=== PATIENT | female | born 1965 | race Caucasian/White ===

== ENCOUNTER 2020-08-08 07:56 | Outpatient (CLI) | payer OTHER ==
[2020-08-09 12:45] LABS: SARS-CoV-2 MS2 Positive; SARS-CoV-2 N Gene Negative; SARS-CoV-2 S Gene Negative; SARS-CoV-2 by NAA Not Detected (NotDetected); SARS-CoV-2 orf1ab Negative
== END 2020-08-08 07:57 | disposition home or self-care (01) ==
LOC: LABBT 07:56
PROVIDERS: ATTEND Plastic Surgery
DX: N62 Hypertrophy of breast (principal); Z20.828 Contact with and (suspected) exposure to other viral communicable diseases
CPT/HCPCS: 87635; U0003

== ENCOUNTER 2020-08-12 07:02 | Day surgery (SDC) | payer OTHER ==
[2020-08-08 12:32] VITALS: BMI 29.4
[2020-08-12] MEDS ORDERED: Heparin 5,000 UNITS/ML VIAL ONE (07:26)
[2020-08-12] MEDS ORDERED: Sodium Chloride 0.9% 10 ML ONE ×2 (08:18→11:00)
[2020-08-12] MEDS ORDERED: EPINEPHrine 1 MG/ML AMP ONE (08:18)
[2020-08-12] MEDS ORDERED: Bupivacaine 0.25% HCL 30 ML VIAL ONE (08:18)
[2020-08-12] MEDS ORDERED: Gentamicin 80 MG/2 ML VIAL ONE ×2 (08:18→11:00)
[2020-08-12] MEDS ORDERED: HYDROmorphone 2 MG/ML VIAL ONE (08:43)
[2020-08-12] MEDS ORDERED: Midazolam HCl 2 mg/2 ml Vial ONE (08:43)
[2020-08-12] MEDS ORDERED: Fentanyl 250 MCG/5 ML VIAL ONE (08:43)
[2020-08-12] MEDS ORDERED: PHENYLEPHRINE-NS 100 MCG/ML 10 ML SYRINGE ONE (12:09)
[2020-08-12] MEDS ORDERED: Dexamethasone 20 MG/5 ML VIAL ONE (12:09)
[2020-08-12] MEDS ORDERED: Ondansetron PF 4 MG/2 ML Vial ONE ×2 (12:09→16:16)
[2020-08-12] MEDS ORDERED: Lidocaine 1% PF 5 ML VIAL ONE (12:09)
[2020-08-12] MEDS ORDERED: Rocuronium Bromide 10 MG/ML (10ML VIAL) ONE (12:09)
[2020-08-12] MEDS ORDERED: PROPOFOL 200 MG/20 ML VIAL ONE (12:09)
[2020-08-12] MEDS ORDERED: EPHEDRINE 25 MG/5 ML SYRINGE ONE (12:09)
[2020-08-12] MEDS ORDERED: Glycopyrrolate 0.2 MG/ML 5 ML SYRINGE ONE (12:09)
[2020-08-12] MEDS ORDERED: Fentanyl 100 MCG/2 ML VIAL ONE (15:19)
[2020-08-12] MEDS ORDERED: HYDROcodone/Acetaminophen 5/325 mg Tablet ONE (17:23)
--- NOTE | 2020-08-18 10:41 | EKG ---
Test Reason : PREOP Blood Pressure : / mmHG Vent. Rate : 046 BPM Atrial Rate : 046 BPM P-R Int : 168 ms QRS Dur : 080 ms QT Int : 458 ms P-R-T Axes : 069 034 046 degrees QTc Int : 400 ms Marked sinus bradycardia Low voltage QRS Abnormal ECG No previous ECGs available Confirmed by SARITA UNGER MD ([id number]) on 08/18/2020 10:41:21 AM Referred By: BAMBI Confirmed By:SARITA UNGER MD
--- NOTE | 2020-09-03 09:31 | OP ---
DATE OF PROCEDURE: 09/03/2020 PREOPERATIVE DIAGNOSIS: Macromastia. POSTOPERATIVE DIAGNOSIS: Macromastia. PROCEDURE PERFORMED: Bilateral breast reduction. DESCRIPTION OF PROCEDURE: Following induction of adequate anesthesia, the patient was prepped and draped in usual sterile fashion in supine position. The patient had been prepped and marked for a modified Meeks pattern breast reduction. Due to the length of her breasts, free nipple graft approach was elected for. The modified Meeks pattern incision markings were incised. Skin flaps were raised superiorly, medially, and laterally. A dermoglandular unit was resected medially, laterally, and centrally scoping the central mound. This central mound was placed in an elevated position and secured with 2-0 PDS suture. Prior to closure of the inverted T with 3-0 PDS suture. The nipple was harvested as a free nipple graft thru 42-mm nipple sizer. This was secured into de-epithelialized defect using interrupted and running 3-0 Prolene suture. The surgical field was copiously irrigated and inspected for meticulous hemostasis prior to closure. A similar procedure was done on each side. Job ID: [id number] [facility]
--- NOTE | 2020-09-03 09:35 | OP ---
DATE OF PROCEDURE: 09/03/2020 PREOPERATIVE DIAGNOSIS: Massive weight loss. POSTOPERATIVE DIAGNOSIS: Massive weight loss. PROCEDURE PERFORMED: Abdominoplasty. DESCRIPTION OF PROCEDURE: Following induction of adequate anesthesia, the patient was prepped and draped in usual sterile fashion in supine position. A low transverse incision was made. Dissection was carried sharply down to the abdominal wall fascia with care taken to bevel the lateral edges superiorly. The dissection was then carried cephalad in the plane just above the abdominal fascia at the level of the umbilicus, which was circumcised with dissection being made continuous more posterior and inferior dissection. Dissection was then carried cephalad to the level of the xiphoid, exposing the anterior abdominal wall, which was then plicated with interrupted running 0 PDS suture. The patient was placed in a flexed position and excess skin was marked and excised. The abdominal flap was quilted down to the anterior abdominal wall using 2-0 PDS suture and 0 V-Loc suture. The low-transverse Geronimo's fascia closure was achieved with 2-0 PDS suture followed by 3-0 PDS suture at the dermal level as well as 3-0 Monocryl suture. Drains were placed prior to closure. The surgical field was also copiously irrigated and inspected for meticulous hemostasis prior to closure. The patient tolerated the procedure well. Job ID: [id number]
== END 2020-08-12 18:22 | disposition home or self-care (01) ==
LOC: SDC 07:02
PROVIDERS: ATTEND Plastic Surgery
PROC: 0J080ZZ Alteration of Abdomen Subcutaneous Tissue and Fascia, Open Approach (ICD-10-PCS; principal; 2020-08-12)
PROC: 0HBV0ZZ Excision of Bilateral Breast, Open Approach (ICD-10-PCS; principal; 2020-08-12)
DX: N62 Hypertrophy of breast (principal); Z41.1 Encounter for cosmetic surgery; Z88.0 Allergy status to penicillin
CPT/HCPCS: 88305; 93005; 93010; J0171; J0690; J1100; J1170; J1580; J1644; J2250; J2405; J2704; J3010; J3370; J3490; S0020

== ENCOUNTER 2023-05-31 06:09 | Day surgery (SDC) | payer OTHER ==
[2023-05-27 12:25] VITALS: BMI 33.8
[2023-05-31 07:08] LABS: #Basophils 0.1 thou/uL (0.0-0.2); #Eosinphils 0.2 thou/uL (0.0-0.7); #Monocytes 0.7 thou/uL (0.11-0.59); %Basophils 0.9 % (0.0-1.0); %Eosinophils 3.2 % (0.0-10.0); %Lymphocytes 33.7 % (21.0-51.0); %Monocytes 11.6 % (0.0-10.0); %Neutrophils 50.4 % (42.0-75.0); Hemoglobin 13.9 g/dL (12.0-16.0); Mean Corpuscular HGB CONC 31.2 g/dL (32.0-36.0); Mean Corpuscular Hemoglobin 28.2 pg (27.0-31.0); Mean Corpuscular Volume 90.3 fl (78.0-98.0); Mean Platelet Volume 9.3 fL (7.4-10.4); Platelet Count 239 10x3/uL (130-400); RBC Distribution Width 13.9 % (11.5-14.5); Red Blood Cell (RBC) Count 4.93 mill/uL (4.20-5.40); White Blood Cell (WBC) Count 5.9 10x3/uL (4.8-10.8)
[2023-05-31 07:26] LABS: INR-International Normal Ratio 0.9; Prothrombin Time 12.5 sec (12.0-14.7)
[2023-05-31 07:32] LABS: ALT (SGPT) 27 U/L (8-55); AST (SGOT) 17 U/L (5-34); Albumin 4.2 g/dL (3.5-5.0); Alkaline Phosphatase 85 U/L (40-110); Anion Gap 15 mmol/L (10-20); BUN (Urea Nitrogen) 24 mg/dL (9.8-20.1); Bilirubin, Direct 0.2 mg/dL (0.1-0.3); Bilirubin, Total 0.4 mg/dL (0.2-1.2); Calc. Creatinine Clearance 85 mL/min (70-130); Calcium 9.5 mg/dL (7.8-10.44); Carbon Dioxide 25 mmol/L (22-29); Cardiac Risk 3.4 (Less than 4.5); Chloride 104 mmol/L (98-107); Cholesterol 209 mg/dl (< 200 Desired); Estimated GFR 70; Globulin 2.8 g/dL (2.4-3.5); Glucose 99 mg/dL (70-105); HDL Cholesterol 62 mg/dL (>60 Neg Risk); LDL Cholesterol, Calculated 130 mg/dL; Potassium 4.2 mmol/L (3.5-5.1); Sodium 140 mmol/L (136-145); Triglycerides 84 mg/dL (Less than 150)
[2023-05-31] MEDS ORDERED: Nitroglycerin 2% Ointment 1 INCH/1 GM Packet ONE (08:12)
[2023-05-31] MEDS ORDERED: Heparin 10,000 UNITS/ 10 ML VIAL ONE (08:12)
[2023-05-31] MEDS ORDERED: Adenosine 6 MG/2 ML VIAL ONE (08:12)
[2023-05-31] MEDS ORDERED: Lidocaine 1% (PF) 30 ML VIAL ONE (08:12)
[2023-05-31] MEDS ORDERED: fentaNYL 50 mcg/mL 1 mL Vial ONE (08:50)
[2023-05-31] MEDS ORDERED: Midazolam HCl 2 mg/2 ml Vial ONE (08:51)
[2023-05-31] MEDS ORDERED: Iopamidol 370 76% 100 ML VIAL ONE (08:59)
== END 2023-05-31 12:20 | disposition home or self-care (01) ==
LOC: SDC 06:09
PROVIDERS: ATTEND Internal Medicine Cardiovascular Disease
DX: R07.89 Other chest pain (principal); Z88.0 Allergy status to penicillin; Z90.89 Acquired absence of other organs; Z90.710 Acquired absence of both cervix and uterus; Z87.891 Personal history of nicotine dependence
CPT/HCPCS: 36415; 80053; 80061; 80076; 85025; 85610; 85730; 93005; 93010; 93458; 99152; C1769; J0153; J1644; J2001; J2250; J3010; Q9967